=== PATIENT | male | born 1950 | race Caucasian/White ===

== ENCOUNTER 2017-12-02 09:04 | Emergency (ER) | payer OTHER ==
[~2017-12-02] VITALS: Ht 175.3 cm; Wt 81.6 kg
[~2017-12-02 09:04] MED LIST: FINA5TAB1 PO
[2017-12-02 09:06] VITALS: BP 158/102
--- NOTE | 2017-12-02 09:14 | NUR ---
PT TAKEN TO BED 7.
--- NOTE | 2017-12-02 09:26 | NUR ---
67Y/M BIB SELF C/O CHEST POUNDING. PT STATES " I FEEL GAS IN MY STOMACH A COUPLE DAYS" AAOX4 WITH EVEN AND STEADY GAIT; LUNGS CLEAR BL; HR EVEN AND REGULAR; PATIENT STATES PAIN OF 0/10 AT THIS TIME; VSS; PATIENT POSITIONED FOR COMFORT; HOB ELEVATED; BEDRAILS UP X 1; BED DOWN. ER MD MADE AWARE OF PT STATUS.
[2017-12-02] MEDS ORDERED: FAMOTIDINE 20 MG TAB PO ONE (09:40)
[2017-12-02 11:04] LABS: BASOPHILS # (AUTO) 0.1 K/uL (0.00-0.22); EOSINOPHILS % (AUTO) 0.7 % (0.0-4.0); HEMATOCRIT 46.3 % (36-52); HEMOGLOBIN 15.4 g/dL (12.0-18.0); LYMPHOCYTES # (AUTO) 1.2 K/uL (2.0-11.5); LYMPHOCYTES % (AUTO) 20.2 % (20.5-51.1); MEAN CORPUSCULAR HEMOGLOBIN 28 pg (27-31); MEAN CORPUSCULAR HGB CONC 33 g/dL (33-37); MEAN CORPUSCULAR VOLUME 84.5 fL (80-94); MONOCYTES # (AUTO) 0.5 K/uL (0.8-1.0); MONOCYTES % (AUTO) 7.6 % (1.7-9.3); NEUTROPHILS # (AUTO) 4.3 K/uL (1.8-7.7); NEUTROPHILS % (AUTO) 70.5 % (42.2-75.2); PLATELET COUNT (AUTO) 203 K/uL (140-450); RED BLOOD CELL COUNT(AUTO) 5.49 MIL/uL (4.20-6.10); RED CELL DISTRIBUTION WIDTH 13.6 % (11.6-13.7); WHITE BLOOD COUNT (AUTO) 6.1 K/uL (4.8-10.8)
[2017-12-02 11:17] LABS: ANION GAP 14.2 (8-16); CARBON DIOXIDE 25.8 mmol/L (21-32)
[2017-12-02 11:22] LABS: ALBUMIN 3.8 g/dL (3.4-5.0); TOTAL BILIRUBIN 0.7 mg/dL (0.0-1.0)
--- NOTE | 2017-12-02 12:11 | NUR ---
Patient discharged with v/s stable. Written and verbal after care instructions given and explained. Patient verbalized understanding. Ambulatory with steady gait. All questions addressed prior to discharge. Advised to follow up with PMD.
[2017-12-02 12:12] VITALS: BP 141/97
== END 2017-12-02 12:11 | disposition home or self-care (01) ==
LOC: MED 09:04
DX: I10 Essential (primary) hypertension (principal); F43.9 Reaction to severe stress, unspecified; Z79.899 Other long term (current) drug therapy
CPT/HCPCS: 36415; 71045; 80053; 81002; 83880; 84484; 85025; 93005; 99285; Q0092

== ENCOUNTER 2017-12-03 23:40 | Emergency (ER) | payer OTHER ==
[~2017-12-03] VITALS: Ht 175.3 cm; Wt 80.3 kg
[2017-12-03 23:49] VITALS: BP 161/94
--- NOTE | 2017-12-03 23:54 | NUR ---
PT.AMBULATED TO [place] [facility]
--- NOTE | 2017-12-04 | NUR ---
PT AMBULATED TO ER BED 01
--- NOTE | 2017-12-04 00:05 | NUR ---
PATIENT PRESENTS TO ED WITH C/O ELEVATED BP. PT DENIES N/V/D; SKIN IS PINK/WARM/DRY; AAOX4 WITH EVEN AND STEADY GAIT; LUNGS CLEAR BL; HR EVEN AND REGULAR; PT DENIES ANY FEVER, CP, SOB, OR COUGH AT THIS TIME; PATIENT STATES PAIN OF 0/10 AT THIS TIME; PATIENT POSITIONED FOR COMFORT; HOB ELEVATED; BEDRAILS UP X2; BED DOWN. ER MD MADE AWARE OF PT STATUS.
--- NOTE | 2017-12-04 00:16 | NUR ---
PT AMB TO [facility] W/O ASST
--- NOTE | 2017-12-04 00:35 | NUR ---
PT RESTING COMFORTABLY IN BED. BP 121/78.
--- NOTE | 2017-12-04 01:19 | NUR ---
Patient appears to be resting comfortably in bed. Vital Signs within normal limits. Respirations even and unlabored.
[2017-12-04 02:07] VITALS: BP 108/62
== END 2017-12-04 02:08 | disposition home or self-care (01) ==
LOC: MED 23:40
DX: I10 Essential (primary) hypertension (principal)
CPT/HCPCS: 81002; 99283

== ENCOUNTER 2018-08-03 23:18 | Emergency (ER) | payer OTHER ==
[~2018-08-03] VITALS: Ht 175.3 cm; Wt 81.6 kg
[2018-08-03 23:22] VITALS: BP 176/90
[2018-08-04 01:33] VITALS: BP 128/64
== END 2018-08-04 01:32 | disposition home or self-care (01) ==
LOC: MED 23:18
DX: K40.90 Unilateral inguinal hernia, without obstruction or gangrene, not specified as recurrent (principal); I10 Essential (primary) hypertension; Z79.899 Other long term (current) drug therapy
CPT/HCPCS: 99284

== ENCOUNTER 2019-11-19 20:51 | Emergency (ER) | payer OTHER ==
[~2019-11-19] VITALS: Ht 175.3 cm; Wt 81.6 kg
[2019-11-19 20:52] VITALS: BP 157/92
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
--- NOTE | 2019-11-19 21:10 | NUR ---
pt ambulated to bed #7.
--- NOTE | 2019-11-19 21:12 | NUR ---
AT BEDSIDE EXAMINING PT
--- NOTE | 2019-11-19 21:27 | NUR ---
XR AT BEDSIDE.
--- NOTE | 2019-11-19 22:13 | NUR ---
PTS RIGHT SHOULDER PLACED IN A SLING. PTS PMSC WNL
[2019-11-19 22:18] VITALS: BP 157/92
== END 2019-11-19 22:18 | disposition home or self-care (01) ==
LOC: MED 20:51
DX: S46.911A Strain of unspecified muscle, fascia and tendon at shoulder and upper arm level, right arm, initial encounter (principal); W18.39XA Other fall on same level, initial encounter; X58.XXXA Exposure to other specified factors, initial encounter; M77.9 Enthesopathy, unspecified; I10 Essential (primary) hypertension; Z79.899 Other long term (current) drug therapy; Y93.55 Activity, bike riding; Y92.89 Other specified places as the place of occurrence of the external cause; Y99.8 Other external cause status; Y93.89 Activity, other specified
CPT/HCPCS: 73030; 99283; Q0092

== ENCOUNTER 2020-08-18 21:49 | Emergency (ER) | payer OTHER ==
[~2020-08-18] VITALS: Ht 175.3 cm; Wt 82.6 kg
[2020-08-18 22:00] VITALS: BP 146/89
--- NOTE | 2020-08-18 22:02 | NUR ---
PT TAKEN TO BED 8
--- NOTE | 2020-08-18 22:22 | NUR ---
69 Y/O MALE C/O SOB, ANXIETY ATTACK, DAUGHTER , TESTED COVID WITH POSITIVE RESULT 2 DAYS AGO. PT DENIES ANY PAIN. PT REQUESTING FOR A COVID TEST. MEDHX: DENIES NKA
--- NOTE | 2020-08-18 22:32 | NUR ---
Dr. Zelaya examining patient.
--- NOTE | 2020-08-18 22:40 | NUR ---
NOVEL SWAB COLLECTED AND SENT TO LAB
[2020-08-18 22:45] VITALS: BP 146/89
== END 2020-08-18 22:45 | disposition home or self-care (01) ==
LOC: MED 21:49
DX: Z20.828 Contact with and (suspected) exposure to other viral communicable diseases (principal)
CPT/HCPCS: 99283; U0003

== ENCOUNTER 2022-02-12 17:52 | Emergency (ER) | payer OTHER ==
[~2022-02-12] VITALS: Ht 175.3 cm; Wt 83.9 kg
[2022-02-12 18:01] VITALS: BP 141/87
--- NOTE | 2022-02-12 18:06 | NUR ---
PT AMB TO BED 2
--- NOTE | 2022-02-12 19:04 | NUR ---
71 y/o male came in for groin discomfort that radiates to left side of abdomen x 2 weeks. Patient has a history of hernia repair. Patient states its not pain, it is discomfort. Patient was recently diagnosed with H. Pylori. Medical History: Hernia NKDA
--- NOTE | 2022-02-12 19:15 | NUR ---
LAB AT BEDSIDE.
--- NOTE | 2022-02-12 19:18 | NUR ---
Pt report given to VANIA SANDY. Transfer of care at this time.
[2022-02-12] MEDS: FAMOTIDINE 20 MG TAB PO ONE (19:24)
[2022-02-12 19:33] LABS: APPEARANCE,URINE CLEAR (CLEAR); COLOR,URINE YELLOW (YELLOW)
[2022-02-12 19:34] LABS: BLOOD, URINE NEGATIVE (NEGATIVE); UGLUCOSE NEGATIVE (NEGATIVE)
[2022-02-12 19:35] LABS: BILIRUBIN,URINE NEGATIVE (NEGATIVE); LEUKOCYTE ESTERASE ,URINE NEGATIVE (NEGATIVE); NITRITE, URINE NEGATIVE (NEGATIVE)
[2022-02-12 19:44] LABS: RED BLOOD CELL COUNT(AUTO) 5.28 MIL/uL (4.20-6.10); WHITE BLOOD COUNT (AUTO) 6.7 K/uL (4.8-10.8)
[2022-02-12 19:45] LABS: HEMATOCRIT 43.9 % (36-52); HEMOGLOBIN 14.5 g/dL (12.0-18.0); MEAN CORPUSCULAR HEMOGLOBIN 28 pg (27-31); MEAN CORPUSCULAR HGB CONC 33 g/dL (33-37); MEAN CORPUSCULAR VOLUME 83.2 fL (80-94); NEUTROPHILS % (AUTO) 62.6 % (42.2-75.2); PLATELET COUNT (AUTO) 225 K/uL (140-450); RED CELL DISTRIBUTION WIDTH 13.8 % (11.6-13.7)
[2022-02-12 19:46] LABS: BASOPHILS % (AUTO) 0.6 % (0.0-2.0); EOSINOPHILS # (AUTO) 0.2 K/uL (0-0.4); EOSINOPHILS % (AUTO) 2.4 % (0.0-4.0); LYMPHOCYTES # (AUTO) 1.8 K/uL (2.0-11.5); LYMPHOCYTES % (AUTO) 26.6 % (20.5-51.1); MONOCYTES # (AUTO) 0.5 K/uL (0.8-1.0); MONOCYTES % (AUTO) 7.8 % (1.7-9.3); NEUTROPHILS # (AUTO) 4.2 K/uL (1.8-7.7)
--- NOTE | 2022-02-12 19:49 | NUR ---
Patient taken to CT scan via gurney.
[2022-02-12 19:57] LABS: ANION GAP 11.4 (8-16); CARBON DIOXIDE 26.6 mmol/L (21-32); CHLORIDE 106 mmol/L (98-107); CREATININE 0.9 mg/dL (0.6-1.3); GLUCOSE 89 mg/dL (74-106); SODIUM SERUM 140 mmol/L (136-145); UREA NITROGEN, BLOOD 13 mg/dL (7-18)
[2022-02-12 19:58] LABS: ALBUMIN 3.7 g/dL (3.4-5.0); ASPARTATE AMINOTRANSFERASE 16 U/L (15-37); LIPASE 202 U/L (73-393); TOTAL BILIRUBIN 0.5 mg/dL (0.0-1.0)
[2022-02-12] MEDS ORDERED: MAG355OR2 PO (20:56)
[2022-02-12] MEDS ORDERED: FAMO-90 PO (20:56)
--- NOTE | 2022-02-12 20:56 | NUR ---
Dr. Yarbrough explained results and treatment plans.
--- NOTE | 2022-02-12 21:10 | NUR ---
Patient discharged with v/s stable. Written and verbal after care instructions given and explained. Patient alert, oriented and verbalized understanding of instructions. Ambulatory with steady gait. All questions addressed prior to discharge. ID band removed. Patient advised to follow up with PMD. Rx of Pepcid and Maalox given. Patient educated on indication of medication including possible reaction and side effects. Opportunity to ask questions provided and answered.
[2022-02-12 21:11] VITALS: BP 133/67
== END 2022-02-12 21:12 | disposition home or self-care (01) ==
LOC: MED 17:52
DX: K40.90 Unilateral inguinal hernia, without obstruction or gangrene, not specified as recurrent (principal); R10.32 Left lower quadrant pain; Z79.899 Other long term (current) drug therapy
CPT/HCPCS: 36415; 80053; 81003; 83690; 85025; 99284

== ENCOUNTER 2022-05-21 13:51 | Emergency (ER) | payer OTHER ==
[~2022-05-21] VITALS: Ht 175.3 cm; Wt 84.4 kg
[~2022-05-21 13:51] MED LIST changes: +FAMO-90 PO; +MAG355OR2 PO
[2022-05-21 14:59] VITALS: BP 162/79
--- NOTE | 2022-05-21 15:43 | NUR ---
Dr. Zelaya evaluating patient at bedside.
--- NOTE | 2022-05-21 16:00 | NUR ---
71/M PRESENTS TO ED WITH C/O ONE EPISODE OF HEMATURIA ONE HOUR AGO. PATIENT DENIES DYSURIA, FLANK PAIN FEVERS OR CHILLS. DENIES TAKING MEDICATIONS FOR SYMPTOMS.
[2022-05-21] MEDS ORDERED: SULF-59 PO (16:01)
[2022-05-21 16:11] VITALS: BP 162/79
--- NOTE | 2022-05-21 16:11 | NUR ---
Patient discharged with v/s stable. Written and verbal after care instructions ABOUT UTI AND HEMATURIA given and explained. Patient alert, oriented and verbalized understanding of instructions. Ambulatory with steady gait. All questions addressed prior to discharge. ID band removed. Patient advised to follow up with PMD. Rx of BACTRIM given. Patient educated on indication of medication including possible reaction and side effects. Opportunity to ask questions provided and answered.
== END 2022-05-21 16:11 | disposition home or self-care (01) ==
LOC: MED 13:51
DX: N39.0 Urinary tract infection, site not specified (principal); R31.9 Hematuria, unspecified; Z88.1 Allergy status to other antibiotic agents; Z79.899 Other long term (current) drug therapy; Z98.890 Other specified postprocedural states
CPT/HCPCS: 81002; 87086; 99283

== ENCOUNTER 2022-06-01 10:04 | Emergency (ER) | payer OTHER ==
[~2022-06-01] VITALS: Ht 175.3 cm; Wt 83.9 kg
[~2022-06-01 10:04] MED LIST changes: +SULF-59 PO
[2022-06-01 10:08] VITALS: BP 144/94
--- NOTE | 2022-06-01 10:15 | NUR ---
pt given urine cup, states that he's unable to give urine at the moment because he urinated before presentation
--- NOTE | 2022-06-01 10:19 | NUR ---
C/O URINARY BURNING, "PINK URINE", STATES THAT HE FINISHED ATB OF BACTRIM 800MG YESTERDAY, WAS SEEN IN ED MAY 21 ALLERGY: SAVAGERO PMH: TERESSA
[2022-06-01 10:43] LABS: APPEARANCE,URINE CLOUDY (CLEAR); BILIRUBIN,URINE NEGATIVE (NEGATIVE); BLOOD, URINE 3+ (NEGATIVE); COLOR,URINE RED (YELLOW); LEUKOCYTE ESTERASE ,URINE 1+ (NEGATIVE); NITRITE, URINE POSITIVE (NEGATIVE); UGLUCOSE NEGATIVE (NEGATIVE)
--- NOTE | 2022-06-01 10:48 | NUR ---
AMBULATED TO BED 4
--- NOTE | 2022-06-01 10:51 | NUR ---
pt here for dysuria, urine already sent to lab, now awaits dispo, denies any pain. ambulatory and steady gait
[2022-06-01 11:23] LABS: BASOPHILS # (AUTO) 0.1 K/uL (0.00-0.22); BASOPHILS % (AUTO) 0.8 % (0.0-2.0); EOSINOPHILS # (AUTO) 0.2 K/uL (0-0.4); EOSINOPHILS % (AUTO) 2.6 % (0.0-4.0); HEMATOCRIT 41.6 % (36-52); LYMPHOCYTES # (AUTO) 1.3 K/uL (2.0-11.5); LYMPHOCYTES % (AUTO) 18.6 % (20.5-51.1); MEAN CORPUSCULAR HEMOGLOBIN 28 pg (27-31); MEAN CORPUSCULAR HGB CONC 34 g/dL (33-37); MEAN CORPUSCULAR VOLUME 83.7 fL (80-94); MONOCYTES # (AUTO) 0.6 K/uL (0.8-1.0); NEUTROPHILS # (AUTO) 4.8 K/uL (1.8-7.7); PLATELET COUNT (AUTO) 209 K/uL (140-450); RED BLOOD CELL COUNT(AUTO) 4.97 MIL/uL (4.20-6.10); RED CELL DISTRIBUTION WIDTH 14.3 % (11.6-13.7); WHITE BLOOD COUNT (AUTO) 6.9 K/uL (4.8-10.8)
[2022-06-01 11:26] LABS: RBC,URINE 50-80 /HPF (0-5)
[2022-06-01 11:27] LABS: URINE AMORPHOUS URATE 1+ /HPF (None Seen)
--- NOTE | 2022-06-01 11:33 | NUR ---
pt already seen by , labs drawn, now awaits dispo
[2022-06-01] MEDS ORDERED: CEFD300C3 PO ×2 (11:50→12:03)
[2022-06-01 12:03] VITALS: BP 147/73
== END 2022-06-01 12:04 | disposition home or self-care (01) ==
LOC: MED 10:04
DX: N30.90 Cystitis, unspecified without hematuria (principal); Z88.1 Allergy status to other antibiotic agents; Z79.899 Other long term (current) drug therapy
CPT/HCPCS: 36415; 81001; 85025; 87086; 99283